=== PATIENT | male | born 1990 | race Two or more races ===

== ENCOUNTER 2024-01-14 00:14 | Emergency (ER) | payer OTHER ==
[~2024-01-14] VITALS: Ht 165.1 cm; Wt 94.5 kg
[2024-01-14 00:53] VITALS: BP 108/72; PULSE 108; RESP 20; TEMP 97.8; O2SAT 98
[2024-01-14] MEDS ORDERED: CEPH500C PO (02:13)
[2024-01-14] MEDS ORDERED: MUPI2OIN2 EX (02:13)
[2024-01-14] MEDS: cefTRIAXone SOD 1,000 MG VL IM ONE (04:29)
== END 2024-01-14 05:13 | disposition home or self-care (01) ==
LOC: ER 00:14
DX: S90.822A Blister (nonthermal), left foot, initial encounter (principal); S90.821A Blister (nonthermal), right foot, initial encounter; L08.89 Other specified local infections of the skin and subcutaneous tissue; Z59.00 Homelessness unspecified; X58.XXXA Exposure to other specified factors, initial encounter; Y93.89 Activity, other specified; Y92.89 Other specified places as the place of occurrence of the external cause; Y99.8 Other external cause status
CPT/HCPCS: 96372; 99283; J0696